=== PATIENT | male | born 1995 | race Caucasian/White ===

== ENCOUNTER 2019-11-05 11:33 | Emergency (ER) | payer OTHER, SELFPAY ==
[2019-11-05 11:41] VITALS: BP 123/70; PULSE 70; RESP 14; TEMP 36.8; O2SAT 100
--- NOTE | 2019-11-05 11:53 | ED.GENADULT ---
HPI - General Adult General Chief complaint: Skin/Abscess/Foreign Body Stated complaint: red spots on skin Time Seen by Provider: 11/05/19 11:53 Source: patient and RN notes reviewed Mode of arrival: ambulatory Limitations: no limitations History of Present Illness HPI narrative: 24-year-old male presents with complaints of bilateral posterior legs, ankles, right arm, and bilateral hips with raised red, itching, burning, rash for the past 14 days. Out in the yard playing with the family. Cortisone cream with little relief. Denies new detergent, personal hygiene products, or laundry detergent. No new foods or medications. No swelling, bleeding, or drainage. Denies fever or chills, headaches, weakness, fatigue, malagia, facial swelling, or tongue swelling. Denies chest pain or dyspnea. The patient reports they have not been diagnosed with COVID-19. The patient reports they are not waiting for the results of a COVID-19 lab test. The patient reports they do not have fever, chills, weakness, fatigue, myalgia, or facial swelling. The patient reports they do not have a new or worsening cough or shortness of breath. Denies chest pain. The patient reports they do not have any rhinorrhea, congestion, sore throat, nausea, vomiting, abdominal pain, and diarrhea. Tolerating po intake well. Denies recent traveling. Denies concerns for COVID-19 or exposures been home since [id number] order except for essential household needs and return home. At this time, patient is not suspected of having COVID-19. Some parts of this dictation were generated by voice recognition software and may contain typographical and/or grammatical inaccuracies. Related Data Allergies Allergy/AdvReac Type Severity Reaction Status Date / Time No Known Allergies Allergy Verified 11/05/19 11:46 Review of Systems Review of Systems: Narrative: CONSTITUTIONAL: Denies fever, chills, sweats. EYES: Denies visual changes, redness, discharge. ENT: Denies rhinorrhea, congestion, sore throat, otalgia. CARDIOVASCULAR: Denies chest pain, palpitations, edema. RESPIRATORY: Denies dyspnea, wheezing, cough. GASTROINTESTINAL: Denies abdominal pain, nausea, vomiting, diarrhea. GENITOURINARY: Denies dysuria, hematuria, abnormal discharge. SKIN: Complaints of bilateral posterior legs, ankles, right arm, and bilateral hips with raised red, itching, burning, rash. Denies drainage. MUSCULOSKELETAL: Denies acute back pain, joint pain, or myalgia. NEUROLOGIC: Denies numbness or focal weakness. PSYCHIATRIC: Denies anxiety or depression. All other systems reviewed are negative, except as documented in HPI. [facility] Past Medical History Medical History (Updated 11/05/19 @ 12:15 by MARY Rodgers) No significant past medical history Surgical History Surgical History (Updated 11/05/19 @ 12:15 by MARY Rodgers) No significant past surgical history Family History Family History (Updated 11/05/19 @ 12:16 by MARY Rodgers) Father Alive and well Mother Alive and well Social History Social History (Updated 11/05/19 @ 12:17 by MARY Rodgers) Smoking status: Former smoker Tobacco type: cigarettes Smoking end date: 06/10/16 Alcohol intake: current Substance use: current Substance use type: marijuana Living arrangements: with family Occupation/Education: unemployed Gender identity (if verbalized by the patient): Male Comments At time of signature, agree with nurse past medical, surgical, social, and family history. There is no relevant family history pertinent to the presenting complaint. Exam Narrative: Exam Narrative: GENERAL: This is a well-nourished, well-developed patient, in no apparent distress. Talks in full sentences and ambulates with steady gait without dyspnea. HEAD: normocephalic, atraumatic. EYES: PERRL. Sclera clear/white. Vision is grossly intact. THROAT: Mucous membranes moist, posterior pharynx
== END 2019-11-05 12:05 | disposition home or self-care (01) ==
PROVIDERS: Emergency Provider Nurse Practitioner Family; PCP Family Medicine
DX: L23.7 Allergic contact dermatitis due to plants, except food (principal); Z87.891 Personal history of nicotine dependence
CPT/HCPCS: 99213; G0463

== ENCOUNTER 2021-09-15 13:49 | Emergency (ER) | payer OTHER, SELFPAY ==
[2021-09-15 13:55] VITALS: BP 103/68; PULSE 68; RESP 20; TEMP 36.8; O2SAT 100
--- NOTE | 2021-09-15 13:58 | ED.URI ---
HPI - URI/Sore Throat General Chief Complaint: Upper Respiratory Infection Stated Complaint: white spots in throat Time Seen by Provider: 09/15/21 13:58 Source: patient Mode of arrival: ambulatory Limitations: no limitations History of Present Illness HPI Narrative: Mr. Paniagua is a 26-year-old male patient presenting to the clinic today with complaints of some white spots in the back of his throat. MD elicited complaint: sore throat and nasal congestion Related Data Home Medications Medication Instructions Recorded Confirmed No Home Medications 09/15/21 09/15/21 Allergies Allergy/AdvReac Type Severity Reaction Status Date / Time No Known Allergies Allergy Verified 09/15/21 13:53 Review of Systems Review of Systems: Pertinent positives per HPI. Patient denies any fever, chills, rash, headache, visual changes, dizziness, cough, shortness of breath, chest pain, palpitations, nausea, vomiting, diarrhea, constipation, abdominal pain, or any urinary issues. PMFSH Past Medical History Medical History No significant past medical history Surgical History Surgical History No significant past surgical history Family History Family History Father Alive and well Mother Alive and well Social History Social History Smoking status: Former smoker Tobacco type: cigarettes Smoking end date: 06/10/16 Alcohol intake: current Substance use: current Substance use type: marijuana Gender identity (if verbalized by the patient): Male Comments At the time of my signature, I reviewed and agree with the nursing past medical, surgical, social, and family history. There is no relevant family history pertinent to the patient complaint. Exam Narrative: General: Well-developed, well nourished, in no apparent distress Head: Normocephalic, atraumatic Eyes: Pupils equally round and reactive to light bilaterally, EOM intact, sclera and conjunctive clear, no discharge, lids normal Ears: TMs intact and clear, ear canals clear, no drainage, grossly hearing normal. Nose: Nares patent, no discharge, no inflammation, no sinus tenderness. Mouth: Oral pharynx without lesions or masses, good dentition, MMM. Neck: Supple, trachea midline, no enlargement of anterior or posterior cervical nodes, no thyroid masses or goiter palpable. Cardio: Regular rate and rhythm, s1 and s2 normal, no murmur appreciated. Resp: Clear to auscultation bilaterally, no rhonchi, rales, wheezing or rubs Course Course Emergency Course: Portions of this record may have been created with voice recognition software. Level of Care: Express Care Visit Vital Signs Vital signs: Vital signs reviewed MDM - URI/Sore Throat MDM Narrative Medical decision making narrative: At the time of assessment patient is resting comfortably on the exam table. Differential Diagnosis Differential diagnosis: Likely upper respiratory infection, sinusitis, viral infection, influenza and pharyngitis Discharge Plan Discharge Clinical Impression: Tonsil stone Patient Disposition: Home, Self-Care Condition: Stable Instructions: Antibiotic Form Additional Instructions: This appears to be a tonsil stone Strep screen negative in the clinic Information given to patient regarding tonsil stones Follow-up with your PCP in 3 to 5 days as needed Prescriptions: No Action No Home Medications RF: 0 Follow-up/Referrals: Venancio,Parker Walker MD [Primary Care Provider] - Time of Disposition: 14:05 Quality NIHSS Nursing Documentation ED NIHSS nursing documentation: reviewed/agree
== END 2021-09-15 14:14 | disposition home or self-care (01) ==
PROVIDERS: Emergency Provider Nurse Practitioner Family; PCP Family Medicine
DX: J35.8 Other chronic diseases of tonsils and adenoids (principal); Z87.891 Personal history of nicotine dependence
CPT/HCPCS: 87081; 87880; 99213; G0463

== ENCOUNTER 2022-02-04 19:27 | Emergency (ER) | payer OTHER, SELFPAY ==
[2022-02-04 19:30] VITALS: BP 134/108; PULSE 88; RESP 16; TEMP 37.3; O2SAT 100
--- NOTE | 2022-02-04 19:33 | ED.GENADULT ---
HPI - General Adult General Chief complaint: Upper Respiratory Infection Stated complaint: Sore Throat/Body Ache/Fever Time Seen by Provider: 02/04/22 19:34 Source: patient Mode of arrival: ambulatory Limitations: no limitations History of Present Illness HPI narrative: 26-year-old male patient presents to the [facility] with complaints of cold-like symptoms that started this morning. Patient states he has had chills, fever, headache, sore throat. Patient states he has not vaccinated against COVID. Patient states he has had COVID before in June of this year and symptoms were very similar. Patient denies any chest pain shortness of breath. Denies any abdominal pain at this time. Related Data Home Medications Medication Instructions Recorded Confirmed No Home Medications 09/15/21 09/15/21 Allergies Allergy/AdvReac Type Severity Reaction Status Date / Time No Known Allergies Allergy Verified 02/04/22 19:38 Review of Systems Review of Systems: CONSTITUTIONAL: Positive fever, chills, denies sweats. EYES: Denies visual changes, redness, or discharge. ENT: Positive rhinorrhea, congestion, sore throat, denies otalgia. CARDIOVASCULAR: Denies chest pain, palpitations, or edema. RESPIRATORY: Denies cough or dyspnea. GASTROINTESTINAL: Denies abdominal pain, nausea, vomiting, or diarrhea. GENITOURINARY: Denies dysuria or hematuria. SKIN: Denies rash or itching. MUSCULOSKELETAL: Denies back pain, joint pain, or myalgia. NEUROLOGIC: Positive headache, denies numbness, or weakness. PSYCHIATRIC: Denies anxiety or depression. [facility] Past Medical History Medical History No significant past medical history Surgical History Surgical History No significant past surgical history Family History Family History Father Alive and well Mother Alive and well Social History Social History Smoking status: Former smoker Tobacco type: cigarettes Smoking end date: 06/10/16 Alcohol intake: current Substance use: current Substance use type: marijuana Gender identity (if verbalized by the patient): Male Comments At the time of my signature I agree with nursing past medical history, surgical, social, and family history. There is no relevant family history pertinent to the presenting complaint. Exam Narrative: GENERAL: ill-appearing, well-nourished, and in no acute distress. HEAD: Normocephalic, atraumatic. EYES: PERRLA and EOMI. ENT: Nares with erythema and edema noted bilaterally, no rhinorrhea or epistaxis. Mucous membranes moist. Posterior pharynx with slight erythema noted and postnasal drip. No exudates or lesions present. No tonsillar enlargement. Bilateral TMs are clear no erythema or foreign bodies to the canal. NECK: Supple. No lymphadenopathy CHEST: Clear to auscultation. No respiratory distress. HEART: Regular rate and rhythm. No murmur heard. Normal peripheral pulses. ABDOMEN: Soft, nontender, nondistended, normal active bowel sounds. EXTREMITIES: Normal range of motion. No edema. SKIN: Warm, dry, no rash. NEURO: No focal deficits. Alert and oriented x3. Course Course Level of Care: Express Care Visit Reevaluation(s) Reevaluation #1: Reevaluated patient notified him that his rapid COVID, influenza and strep are all negative today. Discussed with him that we will send the strep out for a culture as well as do a COVID PCR. Discussed with him that I do believe he most likely does have COVID but due to the fact that he just now today is having symptoms most likely is why the rapid is not coming back positive. Discussed with patient that I would highly recommend continuing [id number] Tylenol, Motrin lots of fluids and lots of rest. Patient should not go back to work until they are
[2022-02-05 19:20] LABS: SARS-CoV-2 RNA PCR Negative
== END 2022-02-04 19:58 | disposition home or self-care (01) ==
PROVIDERS: Emergency Provider Nurse Practitioner Family; PCP Family Medicine
DX: J06.9 Acute upper respiratory infection, unspecified (principal); Z20.822 Contact with and (suspected) exposure to COVID-19; Z86.16 Personal history of COVID-19; Z87.891 Personal history of nicotine dependence; Z28.310 Unvaccinated for COVID-19
CPT/HCPCS: 87081; 87426; 87804; 87880; 99213; C9803; G0463; U0003; U0005

== ENCOUNTER 2022-02-11 15:49 | Emergency (ER) | payer OTHER, SELFPAY ==
--- NOTE | 2022-02-11 15:49 | ED.URI ---
HPI - URI/Sore Throat General Stated Complaint: ear and throat pain runny nose Time Seen by Provider: 02/11/22 15:49 Source: patient Mode of arrival: ambulatory Limitations: no limitations History of Present Illness HPI Narrative: Mr. Paniagua is a 26-year-old male patient presenting to the clinic today with complaints of sore throat, runny nose, and ear pain times 1 week. He reports he was seen here last week for COVID-like symptoms. States all his testing was negative at that time. He went to the ED on Saturday for left sided ear pain. He was diagnosed with otitis media and otitis externa. He was given prescription for Augmentin and Ciprodex he reports over the last day he has had ringing in his ears and having muffled hearing. Related Data Home Medications Medication Instructions Recorded Confirmed amoxicillin 875 mg-potassium 1 tablet PO BID 02/11/22 02/11/22 clavulanate 125 mg tablet ciprofloxacin 0.3 %-dexamethasone 4 drp LEFT EAR BID 02/11/22 02/11/22 0.1 % ear drops,suspension Allergies Allergy/AdvReac Type Severity Reaction Status Date / Time No Known Allergies Allergy Verified 02/11/22 16:01 Review of Systems Review of Systems: Pertinent positives per HPI. Patient denies any fever, chills, rash, headache, visual changes, dizziness, shortness of breath, chest pain, palpitations, nausea, vomiting, diarrhea, constipation, abdominal pain, or any urinary issues. [facility] Past Medical History Medical History No significant past medical history Surgical History Surgical History No significant past surgical history Family History Family History Father Alive and well Mother Alive and well Social History Social History Smoking status: Former smoker Tobacco type: cigarettes Smoking end date: 06/10/16 Alcohol intake: current Substance use: current Substance use type: marijuana Gender identity (if verbalized by the patient): Male Comments At the time of my signature, I reviewed and agree with the nursing past medical, surgical, social, and family history. There is no relevant family history pertinent to the patient complaint. Exam Narrative: General: Well-developed, well nourished, in no apparent distress Head: Normocephalic, atraumatic Eyes: Pupils equally round and reactive to light bilaterally, EOM intact, sclera and conjunctive clear, no discharge, lids normal Ears: Right TMs intact and dull, left TM, intact, bulging, or red,ear canals clear, no drainage, grossly hearing normal. Nose: Nares patent, clear nasal discharge, mild inflammation, no sinus tenderness. Mouth: Oral pharynx without lesions or masses, good dentition, MMM. Oropharynx red/postnasal drip Neck: Supple, trachea midline, no enlargement of anterior or posterior cervical nodes, no thyroid masses or goiter palpable. Cardio: Regular rate and rhythm, s1 and s2 normal, no murmur appreciated. Resp: Clear to auscultation bilaterally, no rhonchi, rales, wheezing or rubs Course Course Emergency Course: Portions of this record may have been created with voice recognition software. Level of Care: Express Care Visit Vital Signs Vital signs: Vital signs reviewed MDM - URI/Sore Throat MDM Narrative Medical decision making narrative: At the time of visit patient is resting comfortably on the exam table. I suspect the patient has eustachian tube dysfunction with an upper respiratory infection. Discussed that he should continue the Augmentin and Ciprodex as prescribed until completed. I will add prednisone to the regimen to help with the pressure behind the eardrum and help with the congestion as that should help with the ringing in his ear. He voiced understanding of the
[2022-02-11 15:57] VITALS: BP 107/72; PULSE 92; RESP 20; TEMP 37; O2SAT 98
== END 2022-02-11 16:07 | disposition home or self-care (01) ==
LOC: EXPBETH 15:51
PROVIDERS: Emergency Provider Nurse Practitioner Family; PCP Family Medicine
DX: J06.9 Acute upper respiratory infection, unspecified (principal); H69.82 Other specified disorders of Eustachian tube, left ear; Z87.891 Personal history of nicotine dependence
CPT/HCPCS: 99213; G0463

== ENCOUNTER 2022-04-01 10:21 | Emergency (ER) | payer OTHER, SELFPAY ==
[2022-04-01 10:38] VITALS: BP 107/69; PULSE 80; RESP 16; TEMP 36.8; O2SAT 100
--- NOTE | 2022-04-01 10:52 | ED.URI ---
HPI - URI/Sore Throat General Chief Complaint: Upper Respiratory Infection Stated Complaint: sore throat Time Seen by Provider: 04/01/22 10:45 Source: patient Mode of arrival: ambulatory Limitations: no limitations History of Present Illness HPI Narrative: Mr. Paniagua is a 27-year-old male patient presenting to the clinic today with complaints of sore throat that just began yesterday. He denies any fever or chills. He denies any known sick contacts MD elicited complaint: sore throat and nasal congestion Related Data Allergies Allergy/AdvReac Type Severity Reaction Status Date / Time No Known Allergies Allergy Verified 04/01/22 10:46 Review of Systems Review of Systems: Pertinent positives per HPI. Patient denies any fever, chills, rash, headache, visual changes, dizziness, cough, shortness of breath, chest pain, palpitations, nausea, vomiting, diarrhea, constipation, abdominal pain, or any urinary issues. PMFSH Past Medical History Medical History No significant past medical history Surgical History Surgical History No significant past surgical history Family History Family History Father Alive and well Mother Alive and well Social History Social History Smoking status: Former smoker Tobacco type: cigarettes Smoking end date: 06/10/16 Alcohol intake: current Substance use: current Substance use type: marijuana Gender identity (if verbalized by the patient): Male Comments At the time of my signature, I reviewed and agree with the nursing past medical, surgical, social, and family history. There is no relevant family history pertinent to the patient complaint. Exam Narrative: General: Well-developed, well nourished, in no apparent distress Head: Normocephalic, atraumatic Eyes: Pupils equally round and reactive to light bilaterally, EOM intact, sclera and conjunctive clear, no discharge, lids normal Ears: TMs intact and clear, ear canals clear, no drainage, grossly hearing normal. Nose: Nares patent, no discharge, no inflammation, no sinus tenderness. Mouth: Oral pharynx without lesions or masses, good dentition, MMM. Oropharynx red with tonsillar swelling Neck: Supple, trachea midline, enlargement of anterior cervical nodes, no thyroid masses or goiter palpable. Cardio: Regular rate and rhythm, s1 and s2 normal, no murmur appreciated. Resp: Clear to auscultation bilaterally, no rhonchi, rales, wheezing or rubs Course Course Emergency Course: Portions of this record may have been created with voice recognition software. Level of Care: Express Care Visit Vital Signs Vital signs: Vital Signs Temperature 36.8 C 04/01/22 10:38 Pulse Rate 80 04/01/22 10:38 Respiratory Rate 16 04/01/22 10:38 Blood Pressure 107/69 04/01/22 10:38 Pulse Oximetry 100 04/01/22 10:38 Oxygen Delivery Room Air 04/01/22 10:38 Temperature 36.8 C 04/01/22 10:38 Pulse Rate 80 04/01/22 10:38 Respiratory Rate 16 04/01/22 10:38 Blood Pressure 107/69 04/01/22 10:38 Pulse Oximetry 100 04/01/22 10:38 Oxygen Delivery Room Air 04/01/22 10:38 Vital signs reviewed MDM - URI/Sore Throat MDM Narrative Medical decision making narrative: At the time of visit patient is resting comfortably on the exam table strep screen was obtained and was positive in the clinic today. I will treat the patient for strep pharyngitis and given prescription for amoxicillin. Supportive measures were discussed with the patient he voiced understanding of discharge instructions and agrees to treatment plan. Differential Diagnosis Differential diagnosis: Likely upper respiratory infection, otitis media, sinusitis, viral infection, bronchitis, influenza, phary
== END 2022-04-01 11:00 | disposition home or self-care (01) ==
PROVIDERS: Emergency Provider Nurse Practitioner Family; PCP Family Medicine
DX: J02.0 Streptococcal pharyngitis (principal); L08.9 Local infection of the skin and subcutaneous tissue, unspecified; Z87.891 Personal history of nicotine dependence
CPT/HCPCS: 87880; 99213; G0463

== ENCOUNTER 2023-06-20 14:35 | Emergency (ER) | payer OTHER, SELFPAY ==
[2023-06-20 14:40] VITALS: BP 125/77; PULSE 71; RESP 18; TEMP 36.8; O2SAT 99
--- NOTE | 2023-06-20 14:47 | ED.URI ---
HPI - URI/Sore Throat General Chief Complaint: Upper Respiratory Infection Stated Complaint: cough/throat/nose Source: patient, RN notes reviewed and old records reviewed Mode of arrival: ambulatory Limitations: no limitations History of Present Illness HPI Narrative: 20-year-old male patient presents to [facility] with complaint of cough, congestion, sore throat, myalgias started about 3 days ago. Patient states woke up today and symptoms seem to be worse. Patient taking [id number] medications with no relief. Patient denies weakness, dizziness, chest pain, shortness of breath MD elicited complaint: sore throat and nasal congestion Onset (ago): day(s) (3) Related Data Home Medications Medication Instructions Recorded Confirmed No Home Medications 06/20/23 06/20/23 Allergies Allergy/AdvReac Type Severity Reaction Status Date / Time No Known Allergies Allergy Verified 04/01/22 10:46 Review of Systems Constitutional: Constitutional: Reports no additional constitutional complaints, Reports body ache(s), Denies chills, Denies fatigue, Denies fever(s) and Denies headache(s) Eyes: Eyes: Reports no additional eye complaints and Denies blurry vision ENT: Reports system reviewed and no additional complaints, except as documented, Denies vertigo, Denies dizziness, Denies ear discharge, Denies otalgia, Denies facial pain, Denies headache(s), Reports nasal congestion, Reports nasal discharge, Denies sinus pain, Reports sinus pressure and Reports sore throat Cardiovascular: Cardiovascular: Reports no additional cardiovascular complaints, Denies chest pain, Denies chest pain at rest, Denies rapid heart rate and Denies dyspnea Respiratory: Respiratory: Reports no additional respiratory complaints, Reports chest congestion, Reports cough, Denies pain on inspiration, Denies pain with cough and Denies dyspnea Gastrointestinal: Gastrointestinal: Denies abdominal pain, Denies diarrhea, Denies nausea and Denies vomiting Integumentary/Breasts: Skin/Breast: Denies rash Neurologic: Reports system reviewed and no additional complaints, except as documented, Denies vertigo, Denies dizziness and Denies headache(s) Endocrine: Endocrine: Denies fatigue PMFSH Past Medical History Medical History No significant past medical history Surgical History Surgical History No significant past surgical history Family History Family History Father Alive and well Mother Alive and well Social History Social History Smoking status: Former smoker Tobacco type: cigarettes Smoking end date: 06/10/16 Alcohol intake: current Substance use: current Substance use type: marijuana Living arrangements: with family Occupation/Education: unemployed Gender identity (if verbalized by the patient): Male Comments At the time of my signature, I reviewed and agree with the nursing past medical, surgical, social, and family history. There is no relevant family history pertinent to the patient complaint. Exam Const: General: cooperative, healthy appearing, no acute distress and well nourished Nutritional Appearance: well nourished Orientation/consciousness: patient oriented x3 Limitations: no limitations HENMT: Head: normal to inspection and normocephalic Ears: external ears normal, TM's normal bilaterally, mastoids normal and Abnormal EAC present Face/Nose/Sinus: normal facial exam Face and sinus: normal facial exam Mouth: Yes Normal oral and palatal mucosa present, Yes oropharynx normal and Yes moist mucous membranes Throat: tonsils normal, uvula midline, posterior oropharynx abnormal erythema and no uvular edema Eyes: General: appearance normal, both eyes and all related structures Sclera: sclerae norm
== END 2023-06-20 15:05 | disposition home or self-care (01) ==
PROVIDERS: Emergency Provider Registered Nurse; PCP Family Medicine
DX: B34.9 Viral infection, unspecified (principal); Z87.891 Personal history of nicotine dependence
CPT/HCPCS: 87081; 87880; 99213; G0463

== ENCOUNTER 2023-10-14 12:32 | Emergency (ER) | payer OTHER, SELFPAY ==
[2023-10-14 12:36] VITALS: BP 116/76; PULSE 65; RESP 20; TEMP 36.6; O2SAT 99
--- NOTE | 2023-10-14 12:49 | ED.URI ---
HPI - URI/Sore Throat General Chief Complaint: Upper Respiratory Infection Stated Complaint: right eye/cough/nose Time Seen by Provider: 10/14/23 12:49 Source: patient Mode of arrival: ambulatory Limitations: no limitations History of Present Illness HPI Narrative: 28-year-old male presented for complaint of a rash to the right upper eye spreading for about 1 week. endorses itching and some oozing. Denies pain, eye swelling, eye drainage, vision changes or any other skin changes. Has not been taking anything for symptoms. Patient also reports runny nose and cough for about a week. Has taken NyQuil. Denies shortness of breath, wheezing, nausea vomiting, diarrhea, fevers chills. Related Data Allergies Allergy/AdvReac Type Severity Reaction Status Date / Time No Known Allergies Allergy Verified 04/01/22 10:46 Review of Systems Review of Systems: CONSTITUTIONAL: Denies body aches, fever, chills, or sweats. EYES: Denies visual changes, redness, or discharge. ENT: reports rhinorrhea, congestion CARDIOVASCULAR: Denies chest pain, palpitations, or edema. RESPIRATORY: reports cough denies dyspnea. GASTROINTESTINAL: Denies abdominal pain, nausea, vomiting, or diarrhea. SKIN: Reports rash MUSCULOSKELETAL: Denies back pain, joint pain, or myalgia. NEUROLOGIC: Denies headache, numbness, tingling, or weakness. [facility] Past Medical History Medical History No significant past medical history Surgical History Surgical History No significant past surgical history Family History Family History Father Alive and well Mother Alive and well Social History Social History Smoking status: Former smoker Tobacco type: cigarettes Smoking end date: 06/10/16 Alcohol intake: current Substance use: current Substance use type: marijuana Living arrangements: with family Occupation/Education: unemployed Gender identity (if verbalized by the patient): Male Comments At time of signature, I have reviewed and agree with nursing past medical, surgical, social and family history unless otherwise noted. Please see nursing chart for further information. There is no relevant family history pertinent to the presenting complaint Exam Narrative: GENERAL: Well-appearing HEAD: Normocephalic, atraumatic. EYES: conjunctivae clear, and EOMI. ENT: Mucous membranes moist. Oropharynx without edema, erythema or lesions. CHEST: Clear to auscultation. HEART: Regular rate and rhythm. SKIN: Warm, dry. mildly erythematous crusted lesions noted over the right eye lid and eyebrow area, no active drainage, no eye swelling or discharge. NEURO: Alert and oriented x3. Course Course Emergency Course: Patient is aware of diagnosis, understands and agrees to treatment plan. Anticipatory guidance given. Patient agrees to follow-up as directed and is aware of reasons to seek care at the emergency department. Portions of this record may have been created with voice recognition software Level of Care: Express Care Visit Vital Signs Vital signs: Vital Signs Temperature 97.8 F 10/14/23 12:36 Pulse Rate 65 10/14/23 12:36 Respiratory Rate 20 10/14/23 12:36 Blood Pressure 116/76 10/14/23 12:36 Pulse Oximetry 99 10/14/23 12:36 Oxygen Delivery Room Air 10/14/23 12:36 Temperature 97.8 F 10/14/23 12:36 Pulse Rate 65 10/14/23 12:36 Respiratory Rate 20 10/14/23 12:36 Blood Pressure 116/76 10/14/23 12:36 Pulse Oximetry 99 10/14/23 12:36 Oxygen Delivery Room Air 10/14/23 12:36 Reviewed MDM - URI/Sore Throat MDM Narrative Medical decision making narrative: Discussed physical exam findings Consistent with dermatitis over the right eye, Does not appear at this
== END 2023-10-14 13:04 | disposition home or self-care (01) ==
PROVIDERS: Emergency Provider Nurse Practitioner Family; PCP Family Medicine
DX: L30.9 Dermatitis, unspecified (principal); J30.9 Allergic rhinitis, unspecified; Z87.891 Personal history of nicotine dependence
CPT/HCPCS: 99213; G0463

== ENCOUNTER 2024-03-03 10:54 | Emergency (ER) | payer OTHER, SELFPAY ==
[2024-03-03 11:15] VITALS: BP 95/65; PULSE 60; RESP 16; TEMP 36.8; O2SAT 100
[2024-03-03 12:01] LABS: EDSTREPNEGPOS1 Negative (Negative)
--- NOTE | 2024-03-03 12:53 | ED.GENADULT ---
HPI - General Adult General Chief complaint: Upper Respiratory Infection Stated complaint: Sore Throat/Congestion Source: patient Mode of arrival: ambulatory Limitations: no limitations History of Present Illness HPI narrative: Patient presents for evaluation of sore throat for the past 4 days. He also some clear rhinorrhea. He denies any fever, chills, nausea, vomiting, diarrhea, cough, shortness of breath. No recent sick contacts to his knowledge. He does use marijuana but has not been smoking secondary to his current symptoms. He is not taking any medications to assist with his symptoms. Related Data Home Medications Medication Instructions Recorded Confirmed No Home Medications 03/03/24 03/03/24 Allergies Allergy/AdvReac Type Severity Reaction Status Date / Time No Known Allergies Allergy Verified 04/01/22 10:46 Review of Systems Review of Systems: CONSTITUTIONAL: Denies fever, chills, or sweats. EYES: Denies visual changes, redness, or discharge. ENT: Reports clear rhinorrhea and sore throat. Denies otalgia. CARDIOVASCULAR: Denies chest pain, palpitations, or edema. RESPIRATORY: Denies cough or dyspnea. GASTROINTESTINAL: Denies abdominal pain, nausea, vomiting, or diarrhea. GENITOURINARY: Denies dysuria or hematuria. SKIN: Denies rash or itching. MUSCULOSKELETAL: Denies back pain, joint pain, or myalgia. NEUROLOGIC: Denies headache, numbness, dizziness, or weakness. PSYCHIATRIC: Denies anxiety or depression. [facility] Past Medical History Medical History No significant past medical history Surgical History Surgical History No significant past surgical history Family History Family History Father Alive and well Mother Alive and well Social History Social History Smoking status: Former smoker Tobacco type: cigarettes Smoking end date: 06/10/16 Alcohol intake: current Substance use: current Substance use type: marijuana Living arrangements: with family Occupation/Education: unemployed Gender identity (if verbalized by the patient): Male Exam Narrative: GENERAL: Well-appearing, well-nourished, and in no acute distress. HEAD: Normocephalic, atraumatic. EYES: PERRLA and EOMI. ENT: Nares clear, no rhinorrhea or epistaxis. Mucous membranes moist. There is posterior pharyngeal erythema without exudate. Uvula is midline. O Bilateral TMs pearly andrade nonbulging NECK: Supple. No adenopathy or masses. No carotid bruits or JVD CHEST: Clear to auscultation. No respiratory distress. No wheezes rales or rhonchi HEART: Regular rate and rhythm. No murmur heard. Normal peripheral pulses. ABDOMEN: Soft, nontender, nondistended, normal active bowel sounds. EXTREMITIES: Normal range of motion. No edema. SKIN: Warm, dry, no rash. NEURO: No focal deficits. Alert and oriented x3. PSYCH: Normal mood and affect. Course Course Emergency Course: This is a 28-year-old male who presented for evaluation of sore throat and rhinorrhea. Rapid strep negative. Will send throat culture. Ehem-uzc-khwdueu agents for symptom management. Increase hydration. Follow up with primary provider. Go to the ER for worsening symptoms. Patient in agreement with plan care. Level of Care: Express Care Visit Vital Signs Vital signs: Vital Signs Temperature 36.8 C 03/03/24 11:15 Pulse Rate 60 03/03/24 11:15 Respiratory Rate 16 03/03/24 11:15 Blood Pressure 95/65 L 03/03/24 11:15 Pulse Oximetry 100 03/03/24 11:15 Oxygen Delivery Room Air 03/03/24 11:15 Temperature 36.8 C 03/03/24 11:15 Pulse Rate 60 03/03/24 11:15 Respiratory Rate 16 03/03/24 11:15 Blood Pressure 95/65 L 03/03/24 11:15 Pulse Oximetry 100 03/03/24 11:15
== END 2024-03-03 12:56 | disposition home or self-care (01) ==
PROVIDERS: Emergency Provider Nurse Practitioner; PCP Family Medicine
DX: J02.9 Acute pharyngitis, unspecified (principal); Z87.891 Personal history of nicotine dependence
CPT/HCPCS: 87081; 87880; 99213; G0463

== ENCOUNTER 2024-07-22 17:45 | Emergency (ER) | payer OTHER, SELFPAY ==
--- OUTSIDE RECORDS SUMMARY | 2024-07-22 17:47 | XMS_ITS | Clinical Summary ---
Author Organization [facility] Address [address] [place] [address] Care Team Providers Care Cut Out Stitcher Name Role Phone Parker Craft MD Primary Care Provider [phone] Allergies No known active allergies Medications ketorolac (TORADOL) 10 mg tablet Take 1 tablet (10 mg total) by mouth 3 (three) times a day as needed for pain Take with food. 15 tablet 1 Active Additional Information Patient not taking.Reported on 06/16/2021 amoxicillin-cl avulanate (AUGMENTIN) 875-125 mg per tablet Take 1 tablet by mouth every 12 (twelve) hours 14 tablet 2 Active ciprofloxacin- dexAMETHasone (CIPRODEX) otic suspension Administer 4 drops into the left ear 2 (two) times a day 7.5 mL 2 Active cyclobenzaprin e (FLEXERIL) 10 mg tablet Take 1 tablet (10 mg total) by mouth 2 (two) times a day as needed for muscle spasms 20 tablet 3 Active ibuprofen (ADVIL,MOTRIN) 600 mg tablet Take 1 tablet (600 mg total) by mouth every 6 (six) hours as needed for pain for up to 20 doses 20 tablet 3 Active neomycin-polym yxin B-dexAMETHason e (MAXITROL) 3.5 mg/g-10,000 unit/g-0.1 % ointment Apply to right eye 4 (four) times a day Apply around the right eye as directed. Collaborating physician Bradford Garcia MD 7 g 1 4 Active Active Problems Problem Noted Date Diagnosed Date Impetigo 10/15/2023 Folliculitis 10/15/2023 Pruritic dermatitis 10/15/2023 Social History Tobacco Use Types Packs/Day Years Used Date Smoking Tobacco: Never Tobacco Cessation:Counseling Given: Not Answered Alcohol Use Standard Drinks/Week Comments Not Currently 0 (1 standard drink = 0.6 oz pur e alcohol) Personal Safety Answer Date Recorded Have you ever been in or are you currently in a harmful physical or emotional relationship or is someone making you feel afraid or unsafe? 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 Gender Identity Not on file Sexual Orientation Not on file Obstetrics History Last Filed Vital Signs Vital Sign Reading Time Taken Comments Blood Pressure 166/60 10/15/2023 1:32 PM CDT Pulse 66 10/15/2023 1:32 PM CDT Temperature 36.4 C (97.6 F) 10/15/2023 1:32 PM CDT Respiratory Rate 14 10/15/2023 1:32 PM CDT Oxygen Saturation 100% 10/15/2023 1:32 PM CDT Inhaled Oxygen Concentration - - Weight 6.804 kg (15 lb) 10/15/2023 12:44 PM CDT Height 180.3 cm (5' 11 ) 10/15/2023 12:44 PM CDT Body Mass Index 2.09 10/15/2023 12:44 PM CDT Plan of Treatment Health Maintenance Due Date Last Done Comments Depression Screening 1995 Hepatitis C Screening 1995 DTaP/Tdap/Td Vaccine (6 - Tdap) 2006 01/13/2001, 10/06/1996, 1995, Additional history exists Regular Well Visit/Exam 18-64 2013 Influenza Vaccine (#1) 2024 Varicella Vaccines Completed 01/15/2007, 04/03/1996 HPV Vaccines Aged Out No longer eligi ble based on patient's age to complete this topic Pneumococcal vaccine <65 Aged Out No longer eligible based on patient's age to complete this topic Insurance [facility] Care Teams Cut Out Stitcher Relationship Specialty Start Date End Date Parker Craft MD PCP - General 12/10/20
--- OUTSIDE RECORDS SUMMARY | 2024-07-22 17:47 | XMS_ITS | Referral Summary ---
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
--- OUTSIDE RECORDS SUMMARY | 2024-07-22 17:48 | XMS_ITS | Clinical Summary ---
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 20 Tablet 04/07/2023 Active Encounters Date Type Department Care Team Description 05/18/2024 3:54 PM PRACTICE NURSE - 05/18/2024 4:32 PM PRACTICE NURSE Emergency [facility] [address] [place] [address] Benny Lopez, PAC CAP (community acquired pneumonia) Discharge Disposition: Discharged to home or Selfcare 05/18/2024 Travel from Last 3 Months Social History Tobacco Use Types Packs/Day Years Used Date Smoking Tobacco: Never Smokeless Tobacco: Never Tobacco Cessation:Counseling Given: Not Answered Alcohol Use Standard Drinks/Week Comments Not Currently 0 (1 standard drink = 0.6 oz pur e alcohol) Occasionally Sex and Gender Information Value Date Recorded Sex Assigned at Not on file Legal Sex Male 10:17 PM CDT Gender Identity Not on file Sexual Orientation Not on file Last Filed Vital Signs Vital Sign Reading Time Taken Comments Blood Pressure 110/72 05/18/2024 4:25 PM PRACTICE NURSE Pulse 91 05/18/2024 4:29 PM PRACTICE NURSE Temperature 38.2 C (100.7 F) 05/18/2024 4:29 PM PRACTICE NURSE Respiratory Rate 20 05/18/2024 4:15 PM PRACTICE NURSE Oxygen Saturation 100% 05/18/2024 4:29 PM PRACTICE NURSE Inhaled Oxygen Concentration - - Weight 59 kg (130 lb) 05/18/2024 3:08 PM PRACTICE NURSE Height 180.3 cm (5' 11 ) 05/18/2024 3:08 PM PRACTICE NURSE Body Mass Index 18.13 05/18/2024 3:08 PM PRACTICE NURSE Plan of Treatment Health Maintenance Due Date Last Done Comments Hepatitis C Virus (HCV) Screening 1995 TdaP Immunization 1995 Influenza Immunization (#1) 2024 SARS-COV-2 Immunization ( season) 2024 Respiratory Syncytial Virus (RSV) Immunization (Adult) (1 - 1-dose 75+ series) 2070 Hepatitis B Immunization Completed 996, 1995, 1995 DTaP/Tdap/Td Immunization Discontinued 2000, 10/06/1996, 1995, Additional history exists Meningococcal Immunization (ACWY) Completed 07/03/2012, 12/17/2007 Pneumococcal Immunization Combined Aged Out No longer eligible based on patient's age to complete this topic Rotavirus Immunization Aged Out No lo nger eligible based on patient's age to complete this topic Procedures Procedure Name Priority Date/Time Associated Diagnosis Comments XR CHEST 2 VIEWS STAT 05/18/2024 3:23 PM PRACTICE NURSE RSV,SARS-COV-2,INFL UENZA A&B BY PCR STAT 05/18/2024 3:12 PM PRACTICE NURSE from Last 3 Months Results * XR CHEST 2 VIEWS (05/18/2024 3:23 PM PRACTICE NURSE) Anatomical Region Laterality Modality Chest N/A Digital Radiogra phy 05/18/2024 3:58 PM PRACTICE NURSE Impressions 05/18/2024 4:01 PM PRACTICE NURSE IMPRESSION: Left perihilar opacity which may reflect pneumonia. Short-term follow-up is recommended in 6-12 weeks. Narrative 05/18/2024 4:01 PM PRACTICE NURSE EXAM DESCRIPTION: XR CHEST 2 VIEWS REASON FOR STUDY: nausea without vomiting, lightheadedness, body aches, fever, headache and productive cough of clear mucus since 2 days ago after getting out of a hot tub. TECHNIQUE: 2 radiographic view(s) of the chest. COMPARISON: None FINDINGS: The cardiomediastinal silhouette appears normal. Left perihilar infrahilar opacity may reflect pneumonia although not clearly appreciated on lateral view. THIS IS AN ELECTRONICALLY VERIFIED FINAL REPORT 05/18/2024 3:58 PM - Electronically signed by Stone Pablo M.D. JR: Report ID: [id number] Reading Location: [id number] Procedure Note Stone Pablo MD - 05/18/2024 EXAM DESCRIPTION: XR CHEST 2 VIEWS REASON FOR STUDY: nausea without vomiting, lightheadedness, body aches, fever, headache and productive cough of clear mucus since 2 days ago after getting out of a hot tub. TECHNIQUE: 2 radiographic view(s) of the chest. COMPARISON: None FINDINGS: The cardiomediastinal silhouette appears normal. Left perihilar infrahilar opacity may reflect pneumonia although not clearly appreciated on lateral view. THIS IS AN ELECTRONICALLY VERIFIED FINAL REPORT 05/18/2024 3:58 PM - Electronically signed by Stone Pablo M.D. JR: Report ID: [id number] Reading Location: [id number] IMPRESSION: Left perihilar opacity which may reflect pneumonia. Short-term follow-up is recommended in 6-12 weeks. Benny Lopez [facility] DIAGNOSTIC ORDER GURJIT Final Result * RSV,SARS-COV-2,INFLUENZA A&B BY PCR (05/18/2024 3:12 PM PRACTICE NURSE) FLU A Negative Negative, Error 05/18/2024 4:03 PM PRACTICE NURSE [facility] FLU B Negative Negative 05/18/2024 4:03 PM PRACTICE NURSE [facility] RESP SYNC VIRUS Negative Negative 4:03 PM PRACTICE NURSE [facility] SARSCOV2 NOT DETECTED (Reference Range for this test is Not Detected) 05/18/2024 4:03 PM PRACTICE NURSE [facility] Comment:This test was perfor med by a Reverse Heel Cutter PCR Method. Swab NASOPHARYNGEAL WASHINGS / Unknown Non-Phlebotomy Collection / Unknown 05/18/2024 3:12 PM PRACTICE NURSE 05/18/2024 3:19 PM PRACTICE NURSE Narrative [facility] - 05/18/2024 4:03 PM PRACTICE NURSE This test has not been FDA cleared or approved; the test has been authorized by FDA under an Emergency Use Authorization (EUA) for use by laboratories certified under the CLIA that meet the requirements to perform moderate, high or waived complexity tests. Authorized Fact Sheets about this test for providers and patients are available at: https://www.fda.gov/medical-devices/xzwughiif-xccaivjkoh-vpfswex-devices/emergen -us e-authorizations Benny Lopez PAC MICROBIOLOGY - GENER AL ORDERABLES Final Result [facility] [address] [place] [address] from Last [address] [facility] Care Teams Crab Meat Processor Relationship Specialty Start Date End Date Parker Craft MD [address] [place] [address] PCP - General Family Medicine 10/17/22
--- OUTSIDE RECORDS SUMMARY | 2024-07-22 17:48 | XMS_ITS | Data Portability ---
Author Organization [facility] DALLASBhavesh Ellsworth Address [address] [place] [address] Care Team Providers Care Operations Officer Trust Department Name Role Phone PARKER CRAFT Primary Care Provider [phone] Assessment Encounter Date Assessment Date Assessment LastModified by Organization Details LastModified Time 02/21/2022 02/21/2022 Pt is stable and improved. [email or web address] Not available 02/22/2022 11:42:15 10/28/2023 10/28/2023 After a lengthy conversation, sxs appears after he had climbed a pine tree. Sxs may certainly be secondary to an allergy to pine needles. Pt is improving. [email or web address] Not available 10/30/2023 12:52:23 Plan of Treatment Reminders Order Date Submit Date Provider Last Modified By Organization Details Last Modified Time Details Appointments None recorde d. Lab herpes simplex virus 1 + 2 DNA panel, DARREN+pro be, unspeci fied specime n 2023 024 erobbinsma [facility], [address] [place] [address], [address], 15:43:25 HIV 1 + 2, meaning ful use set 2023 024 G[facility], [address] [facility], [address], [place], [address], 4 06:15:28 RPR (rapid plasma reagin) , serum 2023 024 G[facility], [address] [facility], [address], [place], [address], 4 06:15:27 HBsAg (hepati tis B surface Ag), EIA, serum 2023 024 [facility], [address] [place] [address], [address], [place], [address], 4 06:15:27 Hepatit is C IgG Ab, qual, serum 2023 024 [facility], [address] [place] [address], [address], [place], [address], 4 06:15:26 chlamyd ia trachom atis + neisser ia gonorrh oeae + trichom onas vaginal is DNA panel, DARREN+pro be, unspeci fied specime n 2023 024 [facility], [address] [place] [address], [address], [place], [address], 4 06:15:26 Referral physica l therapi st referra l 2022 023 [facility], [address] [facility] , [place], [address], 3 11:53:15 Procedures None recorde d. Surgeries None recorde d. Imaging None recorde d. Medication Orders cyclobe nzaprin e 10 mg tablet 2022 023 erobbina [facility], [address] [place], [address], 4 12:38:45 doxycyc line monohyd rate 100 mg capsule 2023 024 [facility], [address] [place], [address], 4 16:35:15 bacitra brie 500 unit/gr am topical ointmen t 2023 erobbinsma [facility], [address] [place], [address], 12:22:22 ondanse roxy HCl 8 mg tablet 2023 [facility], [address] [place] [address], [address], 12:29:51 triamci nolone acetoni de 0.1 % topical cream 2023 [facility], [address] [place], [address], 12:23:16 clotrim azole 1 % topical cream 2023 [facility], [address] [place] [address], [address], 12:22:57 permeth rin 5 % topical cream 2023 [facility], [address] [place], [address], 13:18:26 Patient TargetsNo targets recorded. Patient Instructions Encounter Date Encounter Id Patient Instructions Last Modified By Organization Details Last Modified Time 02/21/2022 [id number] Quitting Tobacco : Care Instructions [email or web address] Not available 02/21/2022 17:45:37 10/28/2023 [id number] nausea and vomiting: care instructions Not available 10/28/2023 13:26:06 12/02/2023 [id number] Plan of care has been discussed with patient including expected therapeutic benefits and potential side effects of prescribed medication and treatments. Patient verbalizes understanding and is in agreement with the plan of care. Patient was instructed to keep all scheduled appointments and contact the clinic for any additional problems. Not available 12/16/2023 06:52:23 12/13/2023 [id number] scabies: care instructions [email or web address] Not available 12/13/2023 13:18:20 Reason for Referral Physical Therapist Referral for Injury of knee Referring Physician: Parker Craft, Family Medicine, Encounter Date: 09/12/2022 Results Created Date Observation Date Name Description Value Unit Range Abnormal Flag Note LastModifiedBy Organization Detail LastModifiedTime 12/03/19 24 12/04/2023 SPECI MEN STATU S REPOR T specimen status report TNP Test not perfo rmed. The requi red speci men for the test order ed was not recei mode. TEST: [id number] HSV 1 and 2 Ab, IgG RECEI MODE BACTE RIAL SWAB Not Available [facility] ([facility]) [address] [place], [address], 12/04/2023 08:25:30 12/13/19 24 12/14/2023 INTER PRETA TION: interpretati on: Commen t Not infec magdalena with HCV unles s early or acute infec tion is suspe cted (whic h may be delay ed in an immun ocomp romis ed indiv idual ), or other evide nce exist s to indic ate HCV infec tion. Not Available [facility] ([facility]) [address] [place], [address], 12/17/2023 06:15:25 12/13/19 24 12/14/2023 HCV ANTIB VISHNU RFX TO QUANT PCR HCV Ab NON REACTI VE nonrea ctive Not Available [facility] ([facility]) [address] [place], [address], 12/17/2023 06:15:26 12/13/19 24 12/16/2023 CT, NG, TRICH VAG BY DARREN chlamydia by DARREN NEGATI VE negati ve Not Available [facility] ([facility]) [address] [place], [address], 12/17/2023 06:15:26 12/13/19 24 12/16/2023 CT, NG, TRICH VAG BY DARREN gonococcus by DARREN NEGATI VE negati ve Not Available [facility] ([facility]) [address] [facility], [place], [address], 12/17/2023 06:15:26 12/13/19 24 12/16/2023 CT, NG, TRICH VAG BY DARREN trich vag by DARREN NEGATI VE negati ve Not Available [facility] ([facility]) [address] [facility], [place], [address], 12/17/2023 06:15:26 12/13/19 24 12/14/2023 HBSAG SCREE N HBsAg screen NEGATI VE negati ve Not Available [facility] ([facility]) [address] [facility], [place], [address], 12/17/2023 06:15:27 12/13/19 24 12/14/2023 RPR, RFX QN RPR/C ONFIR M TP RPR NON REACTI VE nonrea ctive Not Available [facility] ([facility]) [address] [facility], [place], [address], 12/17/2023 06:15:27 12/13/19 24 12/14/2023 HIV AB/P2 4 AG WITH REFLE X HIV Ab/P24 Ag screen NON REACTI VE nonrea ctive HIV Negat zeferino HIV-1 /HIV- 2 antib odies and HIV-1 p24 antig en were NOT detec magdalena. There is no labor atory evide nce of HIV infec tion. Not Available [facility] ([facility]) [address] [facility], [place], [address], 12/17/2023 06:15:28 Result Notes None recorded. Problems Name Problem SNOMED Code Status Onset Date Resolution Date Notes Provider Name and Address Organization Details Recorded Time Impetigo 08233699 Active 024 Yee Keys MD Attn: Accounting, [address] [facility], [place], [address], [place] [facility] 12:29:56 Problem Notes None recorded. Medical Equipment None Reported. Allergies No known drug allergies Medications Name Sig Start Date Stop Date Status Note LastModified by Organization Details LastModified Time cyclobenzap rine 10 mg tablet Take 1 tablet as needed by oral route at bedtime. 10/27 completed Not Available Not Available Not Available amoxicillin 500 mg capsule TAKE 1 CAPSULE BY MOUTH THREE TIMES DAILY UNTIL COMPLETE 10/27 completed Not Available Not Available Not Available doxycycline hyclate 100 mg capsule TAKE 1 CAPSULE BY MOUTH TWICE DAILY FOR 7 DAYS 10/27 completed Not Available Not Available Not Available cetirizine 10 mg tablet TAKE 1 TABLET BY MOUTH ONCE DAILY NEEDED FOR CONGESTIO N 10/27 completed Not Available Not Available Not Available ibuprofen 800 mg tablet TAKE 1 TABLET BY MOUTH EVERY 8 HOURS FOR PAIN 10/27 completed Not Available Not Available Not Available hydrocodone 5 mg-acetamin ophen 325 mg tablet TAKE 1 TABLET BY MOUTH EVERY 4 TO 6 HOURS NEEDED FOR PAIN 10/27 completed Not Available Not Available Not Available ondansetron HCl 8 mg tablet TAKE 1 TABLET BY MOUTH TWICE DAILY NEEDED 12/12 completed Not Available Not Available Not Available prednisone 20 mg tablet TAKE 2 TABLETS BY MOUTH DAILY FOR 5 DAYS 09/12 completed Not Available Not Available Not Available permethrin 5 % topical cream APPLY (THOROUGH LY MASSAGE INTO SKIN FROM HEAD TO SOLES OF FEET) BY TOPICAL ROUTE ONCE LEAVE ON FOR 8-14 HRS, THEN REMOVE BY THOROUGH WASHING active Not Available Not Available No t Available bacitracin 500 unit/gram topical ointment Apply 1 applicati on twice a day by topical route as needed. 12/12 completed Not Available Not Available Not Available tramadol 50 mg tablet TAKE 1 TO 2 TABLETS BY MOUTH EVERY 6 HOURS NEEDED FOR MODERATE OR MORE SEVERE PAIN 10/27 completed Not Available Not Available Not Available triamcinolo ne acetonide 0.1 % topical cream APPLY CREAM EXTERNALL Y TO AFFECTED AREA TWICE DAILY FOR 1-2 WEEKS 12/12 completed Not Available Not Available Not Available ketorolac 10 mg tablet TAKE 1 TABLET BY MOUTH THREE TIMES DAILY NEEDED FOR PAIN. TAKE WITH FOOD. 11/02 completed Not Available Not Available Not Available amoxicillin 875 mg tablet 08/30 completed Not Available Not Available Not Available hydrocortis one 1 % topical cream APPLY TOPICALLY THREE TIMES DAILY NEEDED FOR ALLERGIC REACTION 10/27 completed Not Available Not Available Not Available doxycycline monohydrate 100 mg capsule TAKE 1 CAPSULE BY MOUTH TWICE DAILY FOR 7 DAYS 12/01 completed Not Available Not Available Not Available cephalexin 500 mg capsule TAKE 1 CAPSULE BY MOUTH 4 TIMES DAILY FOR 10 DAYS 12/12 completed Not Available Not Available Not Available lidocaine HCl 2 % mucosal solution active Not Available Not Available Not Available hydroxyzine HCl 25 mg tablet TAKE 1 TABLET BY MOUTH THREE TIMES DAILY 12/12 completed Not Available Not Available Not Available amoxicillin 400 mg/5 mL oral suspension active Not Available Not Available N ot Available mupirocin 2 % topical ointment APPLY A SMALL AMOUNT TOPICALLY TO THE AFFECTED AREA THREE TIMES DAILY active Not Available Not Available No t Available ibuprofen 600 mg tablet TAKE 1 TABLET BY MOUTH EVERY 6 HOURS NEEDED 10/27 completed Not Available Not Available Not Available azithromyci n 200 mg/5 mL oral suspension 08/30 completed Not Available Not Available Not Available methylpredn isolone 4 mg tablets in a dose pack TAKE DIRECTED ON PACKAGE 10/27 completed Not Available Not Available Not Available fluticasone propionate 50 mcg/actuati on nasal spray,suspe nsion 08/30 completed Not Available Not Available Not Available pseudoephed rine 60 mg tablet Take 2 tablets twice a day by oral route as needed. 02/21 completed Not Available Not Available Not Available clotrimazol e 1 % topical cream APPLY TO THE AFFECTED AND SURROUNDI NG AREAS OF SKIN TWO TIMES DAILY IN THE MORNING AND EVENING 12/12 completed Not Available Not Available Not Available dicyclomine 10 mg capsule Take 1 capsule 3 times a day by oral route as needed for 5 days. 02/21 completed Not Available Not Available Not Available naproxen 500 mg tablet active Not Available Not Available Not Available amoxicillin 875 mg-potassiu m clavulanate 125 mg tablet TAKE 1 TABLET BY MOUTH 2 TIMES DAILY FOR 10 DAYS FOR DENTAL INFECTION 10/27 completed Not Available Not Available Not Available neomycin 3.5 mg/g-polymy cammie B 10,000 unit/g-dexa meth 0.1 % eye oint APPLY A SMALL AMOUNT INTO THE CONJUNCTI ELIZABETH SAC(S) IN AFFECTED EYE(S) BY OPHTHALMI C ROUTE 3 TIMES PER DAY FOR 1 WEEK 12/12 completed Not Available Not Available Not Available ciprofloxac in 0.3 %-dexametha sone 0.1 % ear drops,suspe nsion ADMINISTE R 4 DROPS INTO LEFT EAR TWICE DAILY 02/21 completed Not Available Not Available Not Available chlorhexidi ne gluconate 0.12 % mouthwash SWISH AND SPIT 15 ML (1 CAPFUL) IN MOUTH TWICE DAILY FOR 7 DAYS 10/27 completed Not Available Not Available Not Available Vitals Date Recorded Body height Body mass index (BMI) Body weight Oxygen saturation Oxygen saturation in Arterial blood by Pulse oximetry Heart rate Respiratory rate Body temperature Systolic blood pressure Diastolic blood pressure Provider Name and Address Organization Details Last Updated DateTime 2 180.34 cm 18.5 kg/m2 79168.3 8 g 98 % 98 % 90 /min 16 /min 97.1 [degF] 82 mm[Hg] 60 mm[Hg] Gena Breen MA [facility] 2 16:59:09 Date Recorded Body height Body mass index (BMI) Body weight Oxygen saturation Oxygen saturation in Arterial blood by Pulse oximetry Heart rate Respiratory rate Body temperature Systolic blood pressure Diastolic blood pressure Provider Name and Address Organization Details Last Updated DateTime 3 180.34 cm 19.7 kg/m2 04504.3 2 g 98 % 98 % 60 /min 16 /min 97.3 [degF] 100 mm[Hg] 66 mm[Hg] Gena Breen MA [facility] 3 11:44:17 Date Recorded Oxygen saturation Oxygen saturation in Arterial blood by Pulse oximetry Heart rate Respiratory rate Body temperature Body weight Body mass index (BMI) Body height Systolic blood pressure Diastolic blood pressure Provider Name and Address Organization Details Last Updated DateTime 4 99 % 99 % 60 /min 16 /min 97.1 [degF] 73523.3 1 g 19 kg/m2 180.34 cm 104 mm[Hg] 77 mm[Hg] Gena Breen MA [facility] 4 12:42:41 Date Recorded Body height Body mass index (BMI) Body weight Respiratory rate Body temperature Oxygen saturation Oxygen saturation in Arterial blood by Pulse oximetry Heart rate Systolic blood pressure Diastolic blood pressure Provider Name and Address Organization Details Last Updated DateTime 4 180.34 cm 19.7 kg/m2 77030.8 7 g 16 /min 98.6 [degF] 98 % 98 % 62 /min 112 mm[Hg] 74 mm[Hg] Marjorie Meyer MA [facility] 4 16:37:30 Date Recorded Body height Body mass index (BMI) Body weight Heart rate Body temperature Respiratory rate Oxygen saturation Oxygen saturation in Arterial blood by Pulse oximetry Systolic blood pressure Diastolic blood pressure Provider Name and Address Organization Details Last Updated DateTime 4 180.34 cm 19.4 kg/m2 24832.7 4 g 50 /min 96.9 [degF] 16 /min 99 % 99 % 109 mm[Hg] 74 mm[Hg] Gena Breen MA [facility] 4 12:26:16 Social History Question Answer Notes LastModified by [employer] Details LastModified Time Tobacco Smoking Status Former Smoker Quit at age 21 Gena Breen MA [facility], [facility] 02/21/2022 17:01:28 Do You Have An Advance Directive? No Information not available 11/02/2021 What Is Your Level Of Alcohol Consumption? Occasional [email or web address] Information not available 08/30/2017 How Many Years Have You Consumed Alcohol? 11 Started At 14 Or 15 Information not available 02/21/2022 Are You Blind Or Do You Have Difficulty Seeing? No Information not available 11/02/2021 What Is Your Level Of Caffeine Consumption? Occasional Information not available 11/02/2021 In The 14 Days Before Symptom Onset, Have You Had Close Contact With A Laboratory-confir med COVID-19 While That Case Was Ill? No Information not available 11/02/2021 In The 14 Days Before Symptom Onset, Have You Had Close Contact With A Person Who Is Under Investigation For COVID-19 While That Person Was Ill? No Information not available 11/02/2021 Have You Been To An Area Known To Be High Risk For COVID-19? No Information not available 11/02/2021 Are You Currently Employed? No Information not available 11/02/2021 Are You Deaf Or Do You Have Serious Difficulty Hearing? No Information not available 11/02/2021 What Type Of Diet Are You Following? REGULAR Information not available 11/02/2021 Are There Any Guns Present In Your Home? No Information not available 11/02/2021 Do You Have A High School Diploma Or Higher Education? Yes Information not available 02/21/2022 Do You Sometimes Have To Miss Your Medical Appointments Due To Difficult Getting Transportation? No Information not available 02/21/2022 Do You Feel Unfairly Treated Due To Things Such As Race, Age, Gender, Disability Or Some Other Reason? No Information not available 02/21/2022 Do You Feel Physically And Emotionally Safe While Living At Home? Yes Information not available 02/21/2022 Do You Feel Physically And Emotionally Safe In Your Neighborhood Or Other Public Places? Yes Information not available 02/21/2022 What Was The Date Of Your Most Recent Tobacco Screening? 12/02/2023 Information not available 12/02/2023 How Many Children Do You Have? 0 Information not available 02/21/2022 What Is Your Current Pack Years? 10packyears Information not available 02/21/2022 Do You Use Protection During Sex? No Information not available 11/02/2021 What Is Your Relationship Status? Single Information not available 11/02/2021 Do You Use Your Seat Belt Or Car Seat Routinely? Yes Information not available 11/02/2021 Are You Sexually Active? Yes Information not available 11/02/2021 Do You Have Smoke And Carbon Monoxide Detectors In Your Home? Yes Information not available 11/02/2021 At What Age Did You Start Smoking Tobacco? 14 Information not available 02/21/2022 Are You Passively Exposed To Smoke? No Information no t available 11/02/2021 Do You Feel Stressed (tense, Restless, Nervous, Or Anxious, Or Unable To Sleep At Night)? [id number] Information not available 11/02/2021 Do You Use Any Illicit Or Recreational Drugs? Yes [place] Information not available 11/02/2021 Do You Use Sunscreen Routinely? No Information not available 11/02/2021 Has Tobacco Cessation Counseling Been Provided? No Information not available 02/21/2022 On What Date Was Tobacco Cessation Counseling Provided? 12/02/2023 Information not available 12/02/2023 How Many Years Have You Smoked Tobacco? 7 Information not available 02/21/2022 Do You Or Have You Ever Used Any Other Forms Of Tobacco Or Nicotine? No Information not available 11/02/2021 Sex: Male Functional Status Question Answer Note LastModified by Organizat ion Details LastModified Time Are you able to care for yourself? Yes Information not available 11/02/2021 What is your exercise level? Occasional Information not available 11/02/2021 Mental Status None recorded. Family History Nothing Reported Notes:None reported 02/21/22, 09/12/22, 10/28/23, 12/13/23 Medical History Condition Response Headaches Y Immunizations Vaccine Type Date Status Note Provider Nam e and Address Organization Details Recorded Time IPV 1 completed YE FERNANDEZ MD Attn: Accounting,[address] [place], [address], [facility] 12/13/2023 13:19:56 MMR 0 completed YE FERNANDEZ MD Attn: Accounting,[address] [place], [address], [place] [facility] 12/13/2023 13:19:56 MMR 6 completed YE FERNANDEZ MD Attn: Accounting,[address] [place], [address], [place] [facility] 12/13/2023 13:19:56 varicella 7 completed YE FERNANDEZ MD Attn: Accounting,[address] [place], [address], [place] [facility] 12/13/2023 13:19:56 varicella 6 completed YE FERNANDEZ MD Attn: Accounting,[address], [place], [address], [place] [facility] 12/13/2023 13:19:56 DTP 1 completed YE FERNANDEZ MD Attn: Accounting,[address], [place], [address], [place] [facility] 12/13/2023 13:19:56 OPV 6 completed YE FERNANDEZ MD Attn: Accounting,[address], [place], [address], [place] [facility] 12/13/2023 13:19:56 OPV 6 completed YE FERNANDEZ MD Attn: Accounting,[address], [place], [address] [place] [address], [place] [facility] 12/13/2023 13:19:56 OPV 7 completed YE FERNANDEZ MD Attn: Accounting,[address], [place], [address], [place] [facility] 12/13/2023 13:19:56 OPV 5 completed YE FERNANDEZ MD Attn: Accounting,[address], [place], [address], [place] [facility] 12/13/2023 13:19:56 DTP-Hib 6 completed YE FERNANDEZ MD Attn: Accounting,[address], [place], [address], [place] [facility] 12/13/2023 13:19:56 DTP-Hib 6 completed YE FERNANDEZ MD Attn: Accounting,[address], [place], [address], [place] [facility] 12/13/2023 13:19:56 DTP-Hib 7 completed YE FERNANDEZ MD Attn: Accounting,[address], [place], [address], [place] [facility] 12/13/2023 13:19:56 DTP-Hib 5 completed YE FERNANDEZ MD Attn: Accounting,[address] [facility], [place], [address] [place] [address], [facility] 12/13/2023 13:19:56 Hep B, adolescent or pediatric 6 completed YE FERNANDEZ MD Attn: Accounting,[address] [facility], [place], [address] [place] [address], [facility] 12/13/2023 13:19:56 Hep B, adolescent or pediatric 5 completed YE FERNANDEZ MD Attn: Accounting,[address] [facility], [place], [address] [place] [address], [facility] 12/13/2023 13:19:56 Hep B, adolescent or pediatric 5 completed YE FERNANDEZ MD Attn: Accounting,[address] [facility], [place], [address] [place] [address], [facility] 12/13/2023 13:19:56 Hep A, ped/adol, 2 dose 6 completed YE FERNANDEZ MD Attn: Accounting,[address] [facility], [place], [address] [place] [address], [facility] 12/13/2023 13:19:56 Hep A, ped/adol, 2 dose 7 completed YE FERNANDEZ MD Attn: Accounting,[address] [facility], [place], [address] [place] [address], [facility] 12/13/2023 13:19:56 meningococcal MCV4P 3 completed YE FERNANDEZ MD Attn: Accounting,[address] [facility], [place], [address] [place] [address], [facility] 12/13/2023 13:19:56 meningococcal MCV4P 8 completed YE FERNANDEZ MD Attn: Accounting,[address] [facility], [place], [address] [place] [address], [facility] 12/13/2023 13:19:56 Past Encounters Encounter ID Performer Location Encounter Start Date Encounter Closed Date Diagnosis/Indication Diagnosis SNOMED-CT Code Diagnosis ICD10 Code Diagnosis Note [id number] MD Wilfrido Ventura [facility] [address] [place] [id number] 03/13/2016 14:02:45 03/14/2016 10:14:03 Ex-smoker 8052588 Z87.891 Adult heal th examination 274765786 Z00.00 [id number] MD Wilfrido Ventura [facility] [address] [place] [address] 08/30/2017 13:53:00 09/02/2017 16:28:29 Ex-smoker 0686338 Z87.891 Underweight 642404238 R6 3.6 [id number] MD Eunice Ventura 14 IM [address] [facility] [place] [address] 11/02/2021 12:35:47 11/08/2021 10:56:12 Diarrhea 98307509 R19.7 [id number] MD Eunice Ventura 14 [address] [facility] [place] [address] 02/21/2022 16:24:17 02/22/2022 14:49:06 Smoker 95814445 F17.200 smokes marijuana no cigarettes Long-term current use of cannabis 2354575395 17113 F12.10 pt was advised to minimize usage of this History of otitis media 729946424 Z86.69 now resolved [id number] MD Eunice Ventura 14 IM 4 [facility] [place] [address] 09/12/2022 11:34:54 09/13/2022 10:53:45 Injury of knee 155967414 S89.92XD Marijuana user 952119214 F12.90 Ex-smoker 4330871 Z87.89 1 [id number] MD Eunice Ventura 14 IM 4 [facility] [place] [address] 10/28/2023 12:07:31 10/31/2023 11:30:58 Infection of skin 108631024 L08.9 Nausea 463716288 R11.0 Allergic reaction 956589 005 T78.40XD [id number] AYSE SPEAR 14 IM 4 [facility] [place] [address] 12/02/2023 16:22:23 12/17/2023 08:46:48 HIV screening declined 3790949572 49551 Z53.20 Patient declined HIV screening. Lesion of penis 13485415 0 N48.9 -Rash/lesi ons were swabbed.-P atient to return to clinic if lesions worsen or do not improve Penile candidiasis 95730 8000 B37.49 -Unsure if penile rash is penile candidiasi s vs HSV lesion healing.-P atient would like to try clotrimazo le 1% cream BID for 1-2 weeks and see if symptoms improve.-R haley swabbed for HSV rule out.-Patie nt to follow up in clinic if symptoms do not improve. Pruritic rash 15928034 L 28.2 -Patient has tried bacitracin , doxycyclin e, cephalexin , and mupirocin cream.-Pat ient agreeable to trial of triamcinol one cream BID for 1-2 weeks.-Pat ient to schedule appointmen t with procedure clinic for skin biopsy.-Shahzad mayo declined dermatolog y referral at this time.-Mayra ent to follow up with Dr. Craft for further management . Abdominal pain [id number] R10.9 -Patient reports he has been having intermitte nt abdominal pain after meals-Mayra ent reports he normally eats fried/fast foods and drinks soda and water-[employer] discussed GERD diet with the patient extensivel y.-Patient agreeable to diet modificati on and evaluate at f/u appointmen t [id number] MD Euniec MARION 14 IM 4 [facility] [place] [address] 12/13/2023 11:50:59 01/22/2024 10:33:23 Venereal disease screening [id number] Z11.3 Infestatio n by Sarcoptes scabiei fahad hominis [id number] DDx includes contact dermatitis vs drug reaction vs atopic dermatitis vs scabies vs cellulitis /impetigo vs Secondary syphillis- PO antibiotic s, topical steroids and topical antifungal s all with lack of improvemen t- Will empiricall y treat for scabies infection with topical Permetheri n 5% cream, may reepat dose in 7 days if symptoms persist- Check for STIs as below- Minimize contact with other areas, avoid itching as much as possible Health Concerns Section Related Observation LastModified by Organization Detai ls LastModified Time None Recorded Concern Status LastModified by Organization Details LastModified Time None Recorded Advance Directives Directive N: Payers Encounter Date Sequence Insurance Name Policy Number Policy Lopez Covered Member ID Lopez Member ID Guarantor Name 02/21/2022 1 [facility] ON OR AFTER 12/08/20 (MEDICAID REPLACEMENT - HMO) Stone Paniagua [id number] Stone Paniagua 09/12/2022 1 [facility] ON OR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
[2024-07-22 17:49] VITALS: BP 119/82; PULSE 79; RESP 18; TEMP 37.5; O2SAT 98
--- NOTE | 2024-07-22 17:49 | ED.URI ---
HPI - URI/Sore Throat General Chief Complaint: Upper Respiratory Infection Stated Complaint: Sore Throat/Congestion Time Seen by Provider: 07/22/24 17:55 Source: patient, RN notes reviewed and old records reviewed Mode of arrival: ambulatory Limitations: no limitations History of Present Illness HPI Narrative: 29-year-old male presents to [facility] with complaints of sore throat, stuffy nose draining nose with dark yellow drainage, cough and also coughing up yellow phlegm. Patient reports that he has not had any body aches or any chills and is unaware of any fevers. Patient reports that he has taken NyQuil for his symptoms. MD elicited complaint: cough and sore throat Onset (ago): day(s) (2) Able to tolerate fluids by mouth: Yes Treatments prior to arrival: other (NyQuil) Related Data Allergies Allergy/AdvReac Type Severity Reaction Status Date / Time No Known Allergies Allergy Verified 07/22/24 17:55 Review of Systems Review of Systems: CONSTITUTIONAL: reports malaise, chills, sweats, no fever. EYES: Denies visual changes, redness, or discharge. ENT: Reports rhinorrhea, congestion, sinus pain, no otalgia and positive for sore throat. CARDIOVASCULAR: Denies chest pain, palpitations, or edema. RESPIRATORY: Reports cough.? Denies dyspnea. GASTROINTESTINAL: Denies abdominal pain, nausea, vomiting, diarrhea SKIN: Denies rash or itching. MUSCULOSKELETAL: Denies myalgia. NEUROLOGIC: Denies headache. All systems reviewed & are unremarkable except as noted in HPI and below PMFSH Past Medical History Medical History Strep pharyngitis Sinusitis Bronchitis Surgical History Surgical History No significant past surgical history Family History Family History Father Alive and well Mother Alive and well Social History Social History Smoking status: Former smoker Tobacco type: cigarettes Smoking end date: 06/10/16 Alcohol intake: current Substance use: current Substance use type: marijuana Living arrangements: with family Occupation/Education: unemployed Gender identity (if verbalized by the patient): Male Comments At time of signature, agree with nursing past medical, surgical, social and family history. There is no relevant family history pertinent to the presenting complaint Exam Narrative: GENERAL: Well-appearing, well-nourished, and in no acute distress. HEAD: Normocephalic EYES: PERRLA, conjunctivae clear ENT: Nares red, turbinates edematous and erythematous, clear discharge. Mucous membranes moist. TM pearly andrade with dull light reflex bilaterally; no tragal tenderness. Oropharynx erythematous without lesions. Tonsils not enlarged and without exudate, no drooling, no hoarseness, no trismus, uvula midline.post nasal drainage NECK: Supple. No lymphadenopathy CHEST: Clear to auscultation, breath sounds equal. No wheezing, rhonchi, rales, or stridor. No respiratory distress, speaks in full sentences.cough noted SAO2 98% on room air HEART: Regular rate and rhythm. No murmur heard. SKIN: Warm, dry, no rash. NEURO: Alert and oriented x3. PSYCH: Normal mood and affect Course Course Emergency Course: Patient is aware of diagnosis, understands and agrees to treatment plan.? Anticipatory guidance given.? Patient agrees to follow-up as directed and is aware of reasons to seek care at the emergency department. Portions of this record may have been created with voice recognition software Level of Care: Express Care Visit Vital Signs Vital signs: Reviewed MDM - URI/Sore Throat MDM Narrative Medical decision making narrative: Differential diagnosis considered: Patel virus, strep pharyngitis, allergic rhinitis, upper respiratory tract infection, sinusitis, rhinosinusitis, nasopharyngitis. viral pharyngitis, otitis media, otitis externa, pneumonia, bronchitis, viral cough syndrome, viral syndrome, and influenza.? Exam findings show no acute concerns or changes; patient is non-toxic appearing and is in no distress.? Patient is appropriate for outpatient treatment and follow-up. Differential Diagnosis Differential diagnosis: Likely upper respiratory infection, sinusitis, viral infection, influenza, pharyngitis and other (strep pharyngitis) Medical Records Attestation: I reviewed the patient's medical records. Lab Data Attestation: I reviewed the patient's lab results. Lab results narrative: Strep screen negative, strep culture sent, COVID Antigen negative, Influenza A negative, Influenza B negative Critical Care Time Critical Care Time Critical Care Time: No Discharge Plan Discharge Clinical Impression: Acute bacterial sinusitis Patient Disposition: Home, Self-Care Condition: Stable Instructions: Antibiotic Form Additional Instructions: Increase fluids especially juices and water Zeoh-dwk-apgrcil cough and cold medicine of your choice for your symptoms Tylenol or ibuprofen for any fever pain Zyrtec Claritin or Raquel daily include plain Sudafed in a.m. and early p.m. heat to the face 20-30 minutes 4-6 times a day for pain Salt water gargles, throat lozenges or throat sprays as desired Antibiotic as directed--finished the medication If your symptoms persist, change or worsen significantly before you can contact your personal physician then please, without delay, go to the emergency department for further evaluation. Follow-up with PCP in 7-10 days or sooner if needed Patient Language: Swedish Prescriptions: New amoxicillin 875 mg tablet 875 mg PO Q12H Qty: 20 0RF Rx Instructions: Take all of prescription Tussin Cough (DM only) 15 mg/5 mL liquid 15 mg PO Q6H Qty: 118 0RF Follow-up/Referrals: Venancio,Parker Walker MD [Primary Care Provider] - Time of Disposition: 18:14 Quality Borden Coma Scale Eyes: Open Verbal: Oriented and Alert Motor: Follows Commands Borden Coma Total Score: 15
[2024-07-22 18:12] LABS: EDCOVIDSCREEN Negative (Negative); EDINFLUASCREEN Negative (Negative); EDINFLUBSCREEN Negative (Negative); EDSTREPNEGPOS1 Negative (Negative)
== END 2024-07-22 18:18 | disposition home or self-care (01) ==
PROVIDERS: Emergency Provider Registered Nurse; PCP Family Medicine
DX: J01.90 Acute sinusitis, unspecified (principal); B96.89 Other specified bacterial agents as the cause of diseases classified elsewhere; Z20.822 Contact with and (suspected) exposure to COVID-19
CPT/HCPCS: 87081; 87426; 87804; 87880; 99213; G0463